=== PATIENT | female | born 1945 | race Caucasian/White ===

== ENCOUNTER 2020-03-04 16:23 | Inpatient (IN) | payer OTHER, MEDICAID ==
[~2020-03-04] VITALS: Ht 160 cm; Wt 64.9 kg
[~2020-03-04 16:23] MED LIST: ASPI-231 PO; HOMETAB PO
[2020-03-04] MEDS ORDERED: SODIUM CHLORIDE 0.9% 1,000 ML IV ONE (16:45)
[2020-03-04] MEDS ORDERED: SODIUM CHLORIDE 0.9% 1,000 ML IVB ONE (16:45)
[2020-03-04] MEDS ORDERED: DOPamine 1600MCG/ML D5W 250 ML IV ONE (16:45)
[2020-03-04] MEDS ORDERED: ONDANSETRON HCL 4 MG/2 ML VIAL ONE (17:03)
[2020-03-04 17:12] LABS: Basophils # (auto) 0 10 ^3/uL (0-0.2); Basophils % (auto) 0.5 % (0.0-2.0); Eosinophils # (auto) 0.1 10 ^3/uL (0-0.8); Eosinophils % (auto) 0.6 % (0.0-7.0); Hematocrit 31.3 % (36.0-46.0); Hemoglobin 10.3 g/dL (12.2-16.2); Lymphocytes # (auto) 1.2 10 ^3/uL (0.4-5.4); Lymphocytes % (auto) 12.4 % (10.0-50.0); Mean Corpuscular Hemoglobin 30.5 pg (28.0-32.0); Mean Corpuscular Hgb Conc. 32.9 g/dL (32.0-36.0); Mean Corpuscular Volume 92.7 fL (80.0-100.0); Monocytes # (auto) 0.8 10 ^3/uL (0-1.3); Monocytes % (auto) 8.4 % (0.0-12.0); Neutrophils # (auto) 7.6 10 ^3/uL (1.6-8.6); Neutrophils % (auto) 78.1 % (37.0-80.0); Platelet Count (auto) 281 10^3/uL (140-450); Red Blood Cells 3.38 10^6/uL (4.0-5.20); Red Cell Distribution Width 13.2 % (11.8-14.3); White Blood Cell 9.7 10^3/uL (4.4-10.8)
[2020-03-04] MEDS ORDERED: ONDANSETRON HCL 4 MG/2 ML VIAL IV ONE (17:15)
[2020-03-04 17:19] LABS: Albumin 3.1 g/dL (3.4-5.0); Anion Gap 6 (5-15); Blood Urea Nitrogen 30 mg/dL (7-18); Carbon Dioxide 23 mmol/L (21-32); Chloride 108 mmol/L (98-107); Glucose 125 mg/dL (74-106); Magnesium 2.2 mg/dL (1.6-2.6); Potassium 3.6 mmol/L (3.5-5.1); Sodium 137 mmol/L (136-145)
[2020-03-04 17:26] LABS: Alanine Aminotransferase 41 U/L (13-56); Alkaline Phosphatase 101 U/L (45-117); Aspartate Aminotransferase 23 U/L (15-37); BUN/Creatinine Ratio 25.2; Bilirubin, Total 0.4 mg/dL (0.2-1.0); GFR African American 57 mL/min; GFR Non-African American 47 mL/min; Total Protein 6.4 g/dL (6.4-8.2)
[2020-03-04] MEDS ORDERED: PROCHLORPERAZINE EDISYLATE 5 MG/ML 2ML VIAL IV ONE (19:30)
[2020-03-04 20:01] LABS: Urine Bacteria FEW /hpf (None Seen); Urine Blood 2+ /uL (Negative); Urine Mucus FEW (None Seen); Urine Specific Gravity 1.006 (1.001-1.035); Urine WBC 60 /hpf (0 - 5); Urine WBC Clumps PRESENT /hpf (None Seen)
[2020-03-04] MEDS ORDERED: ACETAMINOPHEN 325 MG TAB PO ONE (20:15)
[2020-03-04] MEDS ORDERED: cefTRIAXone 1GM/50ML D5W 50 ML IV ONE (21:30)
[2020-03-04] MEDS ORDERED: DOPamine 1600MCG/ML D5W 250 ML IV SCH (21:30)
[2020-03-04] MEDS ORDERED: MORPHINE SULF INJ 2 MG/ML SYRINGE 1ML IV PRN (21:30)
[2020-03-04] MEDS: FAMOTIDINE 20 MG TAB PO SCH (22:16)
[2020-03-04] MEDS: ATORVASTATIN 20 MG TAB PO SCH (22:16)
[2020-03-05] MEDS ORDERED: DOPamine 1600MCG/ML D5W 250 ML IV SCH ×2 (05:00→07:30)
--- NOTE | 2020-03-05 05:55 | NUR ---
Telemetry admit from [facility] admitted to Telemetry unit after SBAR received. Patient oriented to HAIDER MOSS RN primary RN, unit, room, bed, and unit policies regarding patient care and visiting hours. Patient now on continuous telemetry monitoring, tele box # 81and telemetry reading on arrival to unit is sr 61BPM. Patient placed on bedside oxygen, weighed by bedscale and encouraged to call if they need something. All questions and concerns addressed, patient verbalized understanding. BED IN LOW POSITION AND CALL LIGHT WITHIN REACH Addendum: 03/05/20 at 0611 by HAIDER MOSS RN RN DOPAMINE RUNNING AT 5.4 PER REPORT.
[2020-03-05 06:13] VITALS: BP 126/61
[2020-03-05] MEDS ORDERED: ATOR20TA50 PO (06:33)
[2020-03-05] MEDS ORDERED: LEVO25TA6 PO (06:33)
[2020-03-05] MEDS ORDERED: DILT30TA24 PO (06:33)
[2020-03-05] MEDS ORDERED: FURO20TA3 PO (06:33)
[2020-03-05] MEDS ORDERED: BISO5TAB44 PO (06:33)
[2020-03-05] MEDS ORDERED: AMIO200T33 PO (06:33)
[2020-03-05] MEDS ORDERED: FAMO20TA10 PO (06:33)
--- NOTE | 2020-03-05 07:31 | NUR ---
report given to dayshift rn patient denies sob distress or pain
--- NOTE | 2020-03-05 08:32 | NUR ---
Dopamine - wrong weight With the help of pharmacy staff, this nurse re-entered the Dopamine drip with the patient's correct weight in the system. The original order said 29.01 but the patient is 67.2 kg.
[2020-03-05] MEDS: cefTRIAXone 1GM/50ML D5W 50 ML IV SCH (08:57)
[2020-03-05 09:00] VITALS: BP 102/56
[2020-03-05] MEDS: DOPamine 1600MCG/ML D5W 250 ML IV SCH (09:00)
[2020-03-05] MEDS: FAMOTIDINE 20 MG TAB PO SCH ×2 (10:26→22:21)
[2020-03-05 11:35] LABS: Basophils # (auto) 0 10 ^3/uL (0-0.2); Basophils % (auto) 0.2 % (0.0-2.0); Eosinophils # (auto) 0.1 10 ^3/uL (0-0.8); Eosinophils % (auto) 0.7 % (0.0-7.0); Hematocrit 33.8 % (36.0-46.0); Hemoglobin 11.1 g/dL (12.2-16.2); Lymphocytes % (auto) 6.9 % (10.0-50.0); Mean Corpuscular Hemoglobin 30.3 pg (28.0-32.0); Mean Corpuscular Hgb Conc. 32.8 g/dL (32.0-36.0); Mean Corpuscular Volume 92.4 fL (80.0-100.0); Monocytes % (auto) 6.7 % (0.0-12.0); Neutrophils # (auto) 12.8 10 ^3/uL (1.6-8.6); Neutrophils % (auto) 85.5 % (37.0-80.0); Platelet Count (auto) 273 10^3/uL (140-450); Red Blood Cells 3.66 10^6/uL (4.0-5.20); Red Cell Distribution Width 13.1 % (11.8-14.3)
[2020-03-05 11:50] LABS: Calcium 8.3 mg/dL (8.5-10.1); Potassium 3.4 mmol/L (3.5-5.1)
[2020-03-05] MEDS ORDERED: IOHEXOL 350 MG/ML 100ML IJ ONE (11:52)
[2020-03-05 11:54] LABS: BUN/Creatinine Ratio 24.4
[2020-03-05] MEDS: ACETAMINOPHEN 325 MG TAB PO PRN ×2 (12:10→23:12)
[2020-03-05] MEDS: ONDANSETRON HCL 4 MG/2 ML VIAL IV PRN ×2 (12:10→22:24)
[2020-03-05] MEDS ORDERED: POTA1TAB61 PO (12:52)
[2020-03-05] MEDS ORDERED: ALEN35TA18 PO (12:54)
[2020-03-05 13:00] VITALS: BP 135/70
--- NOTE | 2020-03-05 14:22 | NUR ---
Med Req / [facility] Home med list from patient was photo copied and placed in the patient's chart. Med req updated. Dr. Prado wants Medical Records from [facility] in [place]. This nurse called but they are closed on weekends. The phone number is [phone]. They are open 8:30-5 M-F. Will pass along for day shift nurse to call tomorrow as there is no fax number listed on their automated answering machine.
[2020-03-05 17:00] VITALS: BP 136/65
--- NOTE | 2020-03-05 19:17 | NUR ---
IV removal IV DC'd to right hand/wrist due to leaking, discontinued with clean sterile technique, catheter fully intact. Pressure dressing applied to site. Patient tolerated well.
--- NOTE | 2020-03-05 19:17 | NUR ---
Opening Shift Note Assumed care of patient, awake and alert. No S/S of distress/SOB or pain. Heart rate 46bpm , denies any symptoms and denies sob distress or pain. Per patient " my heart rate has been low after i went to [place] they gave me medicine and it lowered it too much" Patient heat rate trending low since admission to tele unit. Instructed on POC and to call for assist PRN, will continue to monitor for changes Q1hr and PRN. fall precautions in place.
[2020-03-05 22:00] VITALS: BP 132/75
[2020-03-05] MEDS: ATORVASTATIN 20 MG TAB PO SCH (22:21)
--- NOTE | 2020-03-05 23:12 | NUR ---
pain pain 3/10 aching headache. patient medicated for pain.
--- NOTE | 2020-03-06 00:12 | NUR ---
pain pain 0/10
--- NOTE | 2020-03-06 01:00 | NUR ---
ambulating patient assisted to restroom hear rate in the 130's. patient denies sob distress or pain
--- NOTE | 2020-03-06 01:02 | NUR ---
elevated heart rate/correct time patient reports chest pain 6/10 pressure. patient diaphoretic and reports nausea.ekg done. vs taken b/p 134/78, hear rate 135bpm, 02 saturation 94 % patient placed on 3l nasal cannula, rr 21. Nitroglycerin administered for chest pain.
[2020-03-06] MEDS: NITROGLYCERIN 0.4 MG SL TAB SL PRN ×2 (01:11→01:28)
--- NOTE | 2020-03-06 01:11 | NUR ---
elevated heart rate patient reports chest pain 6/10 pressure. patient diaphoretic and reports nausea.ekg done. vs taken b/p 134/78, hear rate 135bpm, 02 saturation 94 % patient placed on 3l nasal cannula, rr 21. Nitroglycerin administered for chest pain.
--- NOTE | 2020-03-06 01:26 | NUR ---
hospitalist hospitalist called back and this rn informed basket operator okpan of patient condition/status. new orders received to hold dopamine. orders read back and verified by basket operator.
--- NOTE | 2020-03-06 01:28 | NUR ---
chest pain patient now reporting 6/10 chest pain .blood pressure 104/64, heart rate 125. ox saturation 95% rr 18. nitroglycerin given. battery charger conveyor line at bedside.
--- NOTE | 2020-03-06 01:33 | NUR ---
chest pain patient reports relief of chest pain /. patient blood pressure 87/62, heart rate 130bpm, 02 saturation 96%, rr 18. hospitalist paged.
--- NOTE | 2020-03-06 02:07 | NUR ---
hospitalist hospitalist paradise made aware of patient condition and status. new orders received for 250 NS bolus IV. orders read back and verified by karina ghotra.
--- NOTE | 2020-03-06 02:15 | NUR ---
patient denies sob distress or pain. patient laying in bed.
--- NOTE | 2020-03-06 02:15 | NUR ---
hospitalist Received call from RADHA ghotra. per ultrasound tech hold ns 250 bolus and resume dopamine. orders read back and verified by RADHA finnegan
--- NOTE | 2020-03-06 02:30 | NUR ---
assessment patient blood pressure 121/71, heart rate 120bpm, 02 saturation 100%, denies sob distress or pain. patient is asymptomatic.
--- NOTE | 2020-03-06 02:35 | NUR ---
hospitalist paged hospitalist
--- NOTE | 2020-03-06 02:40 | NUR ---
hospitalist hospitalist returned call. informed of patient condition and status. new orders received orders read back and verified by karina finnegan.
[2020-03-06] MEDS ORDERED: CARVEDILOL 3.125 MG TAB PO SCH ×2 (02:45→22:00)
--- NOTE | 2020-03-06 02:47 | NUR ---
ekg ekg was signed by karina finnegan
--- NOTE | 2020-03-06 03:29 | NUR ---
patient assisted to bedpan.patient denies sob distress or pain. heart rate 125bpm
--- NOTE | 2020-03-06 03:52 | NUR ---
hospitalist notified hospitalist of patient heart rate maintaining in the 130's. new orders received orders read back and verified by karina ghotra
[2020-03-06] MEDS ORDERED: CARVEDILOL 3.125 MG TAB PO ONE (04:00)
[2020-03-06] MEDS: DOPamine 1600MCG/ML D5W 250 ML IV SCH ×2 (04:39→11:03)
[2020-03-06 05:00] VITALS: BP 116/82
--- NOTE | 2020-03-06 05:07 | NUR ---
patient provided with bedpan. denies sob distress or pain
[2020-03-06] MEDS: ACETAMINOPHEN 325 MG TAB PO PRN ×2 (05:14→11:19)
--- NOTE | 2020-03-06 05:14 | NUR ---
pain 3/10 headache. patient medicated for pain.
--- NOTE | 2020-03-06 06:14 | NUR ---
pain pain 0/10
--- NOTE | 2020-03-06 07:10 | NUR ---
REPORT GIVEN TO DAYSHIFT RN. PATIENT DENIES SOB DISTRESS OR PAIN AWAKE AND ALERT. NO SYMPTOMS REPORTED BY PATIENT. PATIENT CONTINUES TO HAVE HIGH HEART RATE RANGING 100-130'S. NO FURTHER ORDERS WERE RECEIVED BY HOSPITALIST. ENDORSE CARE TO DAYSHIFT RN.
--- NOTE | 2020-03-06 07:35 | NUR ---
Opening Shift Note Assumed care of patient, awake and alert X4. No S/S of distress/SOB or pain reported at this time. Instructed on POC and to call for assist PRN, call light within reach, currently infusing Dopamine 5mcg/kg/min @ 12.6 to left AC 18g, hr 118, BP 110/78, will continue to monitor for changes Q1hr and PRN.
[2020-03-06 08:00] VITALS: BP 120/74
[2020-03-06] MEDS: cefTRIAXone 1GM/50ML D5W 50 ML IV SCH ×2 (11:01→11:08)
[2020-03-06] MEDS: FAMOTIDINE 20 MG TAB PO SCH ×2 (11:01→11:08)
[2020-03-06] MEDS: ONDANSETRON HCL 4 MG/2 ML VIAL IV PRN (11:17)
--- NOTE | 2020-03-06 12:22 | NUR ---
PAGED DR RUSHING PAGED RE: EKG RESULTS SHOWED A-FIB 135, PT SYMPTOMATIC, C/O CP AND NAUSEA, RETURNED CALL AND ORDERED TO DC DOPAMINE, CONT TO CLOSELY MONITOR
--- NOTE | 2020-03-06 12:49 | NUR ---
AT BEDSIDE DR FELIX AT BEDSIDE, DISCUSSING POC WITH PT, CONT CARE
[2020-03-06] MEDS ORDERED: ENOXAPARIN SOD 60 MG/0.6 ML SYRINGE SC ONE (13:00)
--- NOTE | 2020-03-06 13:26 | NUR ---
CARDIOLOGY PAGED DR BECERRA PAGE RE: SYMPTOMATIC TACHYCARDIA, EKG DONE AND SHOWED A-FIB 135, VS 101/56, RR 20, PT C/O NAUSEA AND CP, CONT CARE
--- NOTE | 2020-03-06 13:57 | NUR ---
4464 03/06/20 - Contacted [facility] at [phone], to inform rehabilitation case coordinator Brandi of patient's transfer status. Spoke with analysts Ralph and Mohini. Per provider (Rahul) patient is currently not stable for transfer. I also requested authorization for days 03/05 thru 03/06/20. Per [employer] analyst Mohini, rehabilitation case coordinator Brandi has not completed her review of patient's clinicals. Once completed Brandi will fax hard copy of authorization. I provided Mohini with my call back info.
--- NOTE | 2020-03-06 17:37 | NUR ---
CARDIOLOGY DR BECERRA WAS NOTIFIED THAT PT CONTINUES TO HAVE ELEVATED HR 130'S, PT ASYMPTOMATIC, STATES " I DONT FEEL NAUSEOUS OR ANY CP", ORDER RECEIVED FOR TOPROL 50MG PO DQ, CLARIFIED BECAUSE PT'S BP RUNS LOW, LAST BP 100/68, P 115, MD STATES TO CONT AND ORDER TOPROL, RBO, CONT CARE
[2020-03-06] MEDS ORDERED: METOPROLOL SUCCINATE XL 50 MG TAB PO ONE (18:45)
--- NOTE | 2020-03-06 19:16 | NUR ---
Opening Shift Note Assumed care of patient, awake, alert and oriented x4, on 3L of oxygen via NC with even and unlabored respirations, no S/S of distress/SOB or pain. Patient able to turn in bed independently, bed in lowest locked position, side rails up x2, and call light within reach. Instructed on POC and to call for assist PRN, will continue to monitor for changes Q1hr and PRN.
[2020-03-06] MEDS: ATORVASTATIN 20 MG TAB PO SCH (21:33)
[2020-03-06] MEDS: ENOXAPARIN SOD 60 MG/0.6 ML SYRINGE SC SCH (21:33)
[2020-03-06 21:50] VITALS: BP 72/60
[2020-03-06 22:00] VITALS: BP 85/52
[2020-03-07] VITALS (9 sets, daily range): BP systolic 72–102; BP diastolic 41–66
[2020-03-07] MEDS ORDERED: AMIODARONE HCL 150 MG in D5W 5% 100 ML IV ONE (03:30)
--- NOTE | 2020-03-07 03:37 | NUR ---
UPGRADE: Spoke to Hospitalist regarding pt's continued HR in 120s-140s, A-fib and SBP 70s-90s. Order received to upgrade pt to LIN status and start pt on Amiodarone gtt. Pt's primary RN notified of pt's upgrade. Pt to be transferred to 264.
[2020-03-07] MEDS ORDERED: AMIODARONE 450mg/250ml AE 250 ML IV ONE (03:45)
--- NOTE | 2020-03-07 05:15 | NUR ---
HOLDING TRANSFER PATIENT CONVERTED BACK TO NORMAL SINUS RHYTHM IN THE 60s. BP 91/66. AWAITING FOR NEW ORDERS FROM HOSPITALIST.
--- NOTE | 2020-03-07 06:23 | NUR ---
UPGRADE CANCEL: Notified Hospitalist of pt's conversion into a sinus rhythm with rate maintaining in 60s. Pt converted into sinus rhythm at 0436 and has maintained that rhythm since. SBP in 90s. To keep pt on Tele unit and cancel Amiodarone gtt order. LIN upgrade cancelled at this time. Pt's primary RN notified.
[2020-03-07 06:37] LABS: Basophils # (auto) 0 10 ^3/uL (0-0.2); Basophils % (auto) 0.5 % (0.0-2.0); Eosinophils # (auto) 0.2 10 ^3/uL (0-0.8); Eosinophils % (auto) 2.3 % (0.0-7.0); Hematocrit 35.9 % (36.0-46.0); Hemoglobin 12.3 g/dL (12.2-16.2); Lymphocytes # (auto) 1.3 10 ^3/uL (0.4-5.4); Lymphocytes % (auto) 15.9 % (10.0-50.0); Mean Corpuscular Hemoglobin 31.3 pg (28.0-32.0); Mean Corpuscular Hgb Conc. 34.2 g/dL (32.0-36.0); Mean Corpuscular Volume 91.4 fL (80.0-100.0); Monocytes # (auto) 0.8 10 ^3/uL (0-1.3); Monocytes % (auto) 10.4 % (0.0-12.0); Neutrophils # (auto) 5.7 10 ^3/uL (1.6-8.6); Neutrophils % (auto) 70.9 % (37.0-80.0); Platelet Count (auto) 286 10^3/uL (140-450); Red Blood Cells 3.93 10^6/uL (4.0-5.20); Red Cell Distribution Width 13.1 % (11.8-14.3)
[2020-03-07 06:46] LABS: BUN/Creatinine Ratio 21.4; Calcium 8.5 mg/dL (8.5-10.1); Potassium 3.2 mmol/L (3.5-5.1)
--- NOTE | 2020-03-07 07:30 | NUR ---
Opening Shift Note Report received and assumed care of patient, awake,alert,cheerful and cooperative No S/S of distress/SOB or pain. Instructed on POC and nursing routines ,stated refused to have Pacemaker procedure done,explain indication and importance of having pacemaker,patient stated she can have it done at [place]. call light within reach patient reminded instructed to call for assistance,patient verbalized understanding.will continue to monitor for changes Q1hr and PRN.
--- NOTE | 2020-03-07 09:10 | NUR ---
ARMIDA FROM [facility] TO CONFIRM PATIENT IS REFUSING PACEMAKER.
[2020-03-07] MEDS: FAMOTIDINE 20 MG TAB PO SCH (09:34)
[2020-03-07] MEDS: cefTRIAXone 1GM/50ML D5W 50 ML IV SCH (09:34)
[2020-03-07] MEDS ORDERED: AMIODARONE 450mg/250ml AE 250 ML IV SCH (09:45)
[2020-03-07] MEDS: ENOXAPARIN SOD 60 MG/0.6 ML SYRINGE SC SCH ×2 (10:00→22:06)
--- NOTE | 2020-03-07 11:40 | NUR ---
MD VISIT DR. ROSEN HERE TO SEE AND EXAMINED PATIENT,MADE AWARE OF EPISODE OR AFIB RVR AND LOW BP AND PATIENT REFUSING PACEMAKER,RECEIVED ORDER FOR TRANSFER TO [facility].
[2020-03-07] MEDS ORDERED: POTASSIUM CHL 20 Meq TABLET PO ONE (11:45)
[2020-03-07] MEDS: METOPROLOL SUCCINATE XL 50 MG TAB PO SCH (11:47)
--- NOTE | 2020-03-07 13:00 | NUR ---
MILENA FROM [facility] CALLED FOR UPDATE,UPDATED WITH PATIENT VITAL SIGNS,EPISODES OF LOW BLOOD PRESSURE,HEART RATE AND EPISODE WHERE PATIENT WENT INTO ATRIAL FIB RVR LAST NIGHT AND AN ORDER TO BE TRANSFERRED TO LIN FOR AMIODARONE DRIP BUT CANCELLED DUE TO PATIENT CONVERTED TO SINUS RHYTHM ON HER OWN,UPDATED PATIENT WAS SUPPOSED TO GET PACEMAKER BUT REFUSED PROCEDURE.INFORMED RECEIVED ORDER FROM DR. ROSEN TO TRANSFER PATIENT TO [facility],STATED WILL CALL BACK.
--- NOTE | 2020-03-07 13:11 | NUR ---
MILENA FROM [facility] CALLED,STATED PATIENT IS UNSTABLE FOR TRANSFER AT THIS TIME DUE TO LOW BP,WILL CALL BACK AND FOLLOW UP IN A.M. SPOKE TO PATIENT TOO REGARDING TRANSFER.
--- NOTE | 2020-03-07 14:37 | NUR ---
1415 03/07/20 - Faxed to [facility] at [phone] face sheet, order for transfer to [facility] to tele bed, H/P, discharge summary, notice regarding post stabilization. Contacted patient via phone regarding pending transfer. Patient stated she was aware and was ok with transferring to [facility]. Patient also stated [facility] case worker Brandi did inform her that there were no beds available at [facility] in [facility] at this time.
[2020-03-07] MEDS: ATORVASTATIN 20 MG TAB PO SCH (22:06)
--- NOTE | 2020-03-08 02:03 | NUR ---
Pt HR per monitor worker @ nurses' station showing 40s - 50s. Pt sleeping soundly, no s/sx of distress. Respirations clear and equal with good air entry. HR increasing slowly to low 60s.
[2020-03-08 05:00] VITALS: BP 103/49
--- NOTE | 2020-03-08 07:30 | NUR ---
RECEIVED REPORT FROM NIGHT NURSE. PATIENT RESTING IN BED, NO DISTRESS NOTED. WILL CONTINUE TO MONITOR.
[2020-03-08 09:00] VITALS: BP 99/53
[2020-03-08] MEDS: ENOXAPARIN SOD 60 MG/0.6 ML SYRINGE SC SCH ×2 (09:45→22:00)
[2020-03-08] MEDS: cefTRIAXone 1GM/50ML D5W 50 ML IV SCH (09:46)
[2020-03-08] MEDS: FAMOTIDINE 20 MG TAB PO SCH (09:46)
[2020-03-08] MEDS: METOPROLOL SUCCINATE XL 50 MG TAB PO SCH (09:51)
--- NOTE | 2020-03-08 11:21 | NUR ---
1115 03/08/20 - Contacted by [facility] returned case inspector Anu who provided update on pending transfer to [facility] facility. Per Anu when bed available pt will be transferred to [facility] in [place]. Provided Anu with a verbal update on patient status.
--- NOTE | 2020-03-08 11:55 | NUR ---
COVID ([facility]) SWAB COLLECTED AND WALKED TO LAB.
[2020-03-08] MEDS ORDERED: methIMAzole 5 MG TAB PO ONE (12:15)
[2020-03-08] MEDS ORDERED: POTASSIUM CHL 20 Meq TABLET PO ONE (12:15)
[2020-03-08 13:00] VITALS: BP 108/50
[2020-03-08] MEDS ORDERED: methIMAzole 5 MG TAB PO SCH ×2 (14:00→22:00)
--- NOTE | 2020-03-08 14:20 | NUR ---
IN HOUSE COVID SWAB COLLECTED AND WALKED TO LAB.
--- NOTE | 2020-03-08 14:56 | NUR ---
Nutrition Assessment Notes Please refer to link for full assessment notes. Est Energy needs: 2843-8161 kcals (20-23 kcal/kgBW) Est Protein needs: 68-75 gms/day (1.0-1.1 gm/kgBW) Will continue to monitor and reassess prn. Addendum: 03/08/20 at [address] Amended: Links added.
[2020-03-08 17:00] VITALS: BP 114/58
--- NOTE | 2020-03-08 17:30 | NUR ---
RECEIVED CALL FROM LORA FROM [facility]. SHES STATED THAT THERE WILL BE A MD THAT WILL BE PICKING THE PATIENT UP FOR TRANSFER AND THAT THE PATIENT WILL BE ON TRANSCUTANEOUS PACING WHILE IN ROUTE TO [facility]. SHE STATED THAT THE MD PICKING THE PATIENT UP WILL USE THEIR OWN SUPPLIES. UPDATED HER ON PATIENT STATUS AND CONDITION. INFORMED HER THAT THE PATIENT IS ON THE TELE FLOOR AND NOT CURRENTLY ON TRANSCUTANEOUS PACING, ALSO INFORMED HER THAT I AM UNABLE TO TAKE ORDERS FROM A [facility] MD THEY DO NOT HAVE PRIVILEGES AT [facility]. CHARGE NURSE, CASE EARL AWARE. NO BED AVAILABLE AT THIS TIME. BED LIKELY AVAILABLE LATER [facility]. [facility] PHONE #[phone]
[2020-03-08] MEDS: ACETAMINOPHEN 325 MG TAB PO PRN (18:03)
--- NOTE | 2020-03-08 19:15 | NUR ---
DISCHARGE/ TRANSFER ENDORSED TO NIGHT NURSE. PAPERWORK GIVEN TO NIGHT NURSE.
[2020-03-08 22:00] VITALS: BP 115/44
[2020-03-08] MEDS: ATORVASTATIN 20 MG TAB PO SCH (22:00)
--- NOTE | 2020-03-08 22:09 | NUR ---
This RN spoke with Alissa from [facility] MD for pt is Dr. Nicki Aguilar at [facility]. Pt to go to room 633.
--- NOTE | 2020-03-08 23:23 | NUR ---
Intervention note for 2199, 2211 posted incorrectly. Pt able to amb without assist. Turns self in bed without diff. Pt cooperative.
--- NOTE | 2020-03-09 | NUR ---
Received telephone call from [facility] asking if pt would be ambulatory or need a gurney. This RN informed crew that pt is ambulatory and could ride in w/c; but as late as it is, pt prob would be more comfortable on a gurney. Reminded caller that MD and nurses would be accompanying pt. Caller MARY.
--- NOTE | 2020-03-09 00:46 | NUR ---
Ary, bed coordinator, at [facility] called this RN and stated that [facility] Foreman would be receiving care of pt at their hospital; gave phone # as [phone]. This RN called and spoke to [facility] Foreman giving full report re. pt.; MARY.
--- NOTE | 2020-03-09 02:27 | NUR ---
[facility] personnel here, OWEN Rush and two steel estimator; Dr. Max Aguilera arrived. Report given to all.
--- NOTE | 2020-03-09 02:51 | NUR ---
environmental scientists removed from pt and sent to Tele center. Pt taken to ambulance via gurney accompanied by RN, MD, and property disposal officer x2. Pt A&Ox4; denies pain/discomfort or difficulty breathing. Cont SB in 40s per transport monitoring. Condition fair.
== END 2020-03-09 02:51 | disposition short-term general hospital (02) | DRG 308 ==
LOC: EDBD 16:23 → ER 16:23 → TELE 16:24 → TELE-WESTW 03-05 05:49
PROVIDERS: ADMIT Nurse Practitioner; ATTEND Internal Medicine
DX: I48.91 Unspecified atrial fibrillation (principal); J96.00 Acute respiratory failure, unspecified whether with hypoxia or hypercapnia; I50.31 Acute diastolic (congestive) heart failure; I13.0 Hypertensive heart and chronic kidney disease with heart failure and stage 1 through stage 4 chronic kidney disease, or unspecified chronic kidney disease; E44.1 Mild protein-calorie malnutrition; N39.0 Urinary tract infection, site not specified; D68.69 Other thrombophilia; I49.5 Sick sinus syndrome; E11.22 Type 2 diabetes mellitus with diabetic chronic kidney disease; D63.8 Anemia in other chronic diseases classified elsewhere; E03.9 Hypothyroidism, unspecified; D72.829 Elevated white blood cell count, unspecified; Z20.828 Contact with and (suspected) exposure to other viral communicable diseases; E87.6 Hypokalemia; E78.5 Hyperlipidemia, unspecified; E78.00 Pure hypercholesterolemia, unspecified; I25.2 Old myocardial infarction; Z88.6 Allergy status to analgesic agent; Z88.8 Allergy status to other drugs, medicaments and biological substances; N18.30 Chronic kidney disease, stage 3 unspecified
CPT/HCPCS: 36415; 71045; 71275; 80048; 80053; 81001; 83735; 83880; 84443; 84484; 85025; 85379; 87040; 87081; 87086; 87426; 93005; 93970; G0378; J0696; J2405; J7060